=== PATIENT | female | born 1980 | race Caucasian/White ===

== ENCOUNTER 2017-01-01 02:12 | Emergency (ER) | payer OTHER ==
[~2017-01-01 02:12] MED LIST: ACETAMINOPHEN; ALBUTEROL17 GM INH; AMOXICILLIN PO; AMOXICILLIN500 M1 PO; ASPIRIN81 MG; BACTRIM DS TABL1 TA1 PO; BENZONATATE PO; EC-NAPROSYN500 MG PO; IBUPROFEN; LORTAB ELIXIR15 ML PO; NO MEDICATIONS; PEN-VEE K PO; PHENERGAN PO; PROZAC; ULTRAM PO; VICODIN 5/500 T1 TAB PO; VOLTAREN50 MG PO; VOLTAREN75 MG PO; ZOLOFT
== END 2017-01-01 02:14 | disposition left against medical advice (07) ==
LOC: SED 02:12
DX: Z53.21 Procedure and treatment not carried out due to patient leaving prior to being seen by health care provider (principal)